=== PATIENT | male | born 1990 | race Two or more races ===

== ENCOUNTER 2020-07-26 14:31 | Emergency (ER) | payer MEDICAID ==
[~2020-07-26] VITALS: Ht 180.3 cm; Wt 61.2 kg
--- NOTE | 2020-07-26 14:51 | NUR ---
REPORT TO STAN MAXWELL.
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
[2020-07-26 15:42] LABS: BASOPHILS % (AUTO) 0 % (0-1); EOSINOPHILS % (AUTO) 3 % (1-7); LYMPHOCYTES % (AUTO) 31 % (22-44); MEAN CORPUSCULAR HEMOGLOBIN 30.5 pg (27.5-34.5); MEAN PLATELET VOLUME 8.4 fL (7.4-10.4); MONOCYTES % (AUTO) 7 % (2-9); NEUTROPHILS % (AUTO) 59 % (42-75); PLATELET COUNT 220 x10^3/uL (130-400); RED BLOOD COUNT 5.09 x10^6/uL (4.38-5.82)
[2020-07-26 15:43] LABS: ANION GAP 5 mmol/L (5-15); CALCIUM 8.9 mg/dL (8.5-10.1); CHLORIDE 106 mmol/L (98-107); CREATININE 1.03 mg/dL (0.7-1.3); MD NO
[2020-07-26 16:48] VITALS: BP 128/78
== END 2020-07-26 16:49 | disposition home or self-care (01) ==
LOC: ED 16:15
DX: R00.2 Palpitations (principal); R07.9 Chest pain, unspecified; R94.31 Abnormal electrocardiogram [ECG] [EKG]
CPT/HCPCS: 36415; 71045; 80048; 82040; 85025; 93005; 99285